=== PATIENT | male | born 1995 | race Hispanic/Latino ===

== ENCOUNTER 2018-12-10 22:03 | Observation (INO) | payer SELFPAY ==
[2018-12-10 22:25] VITALS: BMI 20.8
[2018-12-11] VITALS (13 sets, daily range): BP systolic 88–116; BP diastolic 44–58; PULSE 61–85; RESP 9–20; TEMP 36.6–37.2; O2SAT 98–100
--- NOTE | 2018-12-11 | PATH_ITS ---
[facility] Accession Number: [id number] . 01 Material submitted: . APPENDIX . 02 Diagnosis: Appendix: Acute appendicitis. [facility]/12/15/2018 . 02 Electronically signed: . Louie Alfaro MD, Pathologist NPI- [id number] . 01 Gross description: . Received in formalin, labeled appendix, is an intact appendix (length-6.6 cm, diameter-0.9 cm) with dull davila-white serosa with attached mesoappendix (up to 1.0 cm in depth). The resection margin is received opened. The lumen contains clear colorless fluid. The wall is up to 0.5 cm thick. No nodules, masses or lesions are identified. The resection margin is inked black. Section code: (A1) resection margin en face and four additional serial sections; (A2) four field service representative serial sections; (A3) bivalved tip, entirely submitted. ([id number]) /MRV . 02 Pathologist provided ICD-10: K35.80 . 02 CPT . 462268 Performed at: 01 [facility] [address] [facility], [place], [place] [id number] MD Derek Jones MD Phone: [phone] Performed at: [facility] [address] [place], [place] [id number] MD Shruti Stover MD Phone: [phone]
[2018-12-11] MEDS: MORPHINE 2 MG/ML INJ IV ×2 (02:05→13:21)
[2018-12-11] MEDS: SODIUM CHLORIDE 0.9% 1,000 ML 125 ML IV ×2 (02:06→08:25)
--- NOTE | 2018-12-11 04:56 | PC.NURSE ---
pt arrived to floor at [address] vehicle from Thursday. Patient and father speak mostly Swedish. Father and friend in room. Interpreting phone services unavailable for admission, but friend (lives with patient and father) able to interpret. pt reporting 6/10 pain in lower, medial abdomen, 2mg IV Morphine administered at 0200, pt sleeping since then. NS infusing at 125ml/hr to right AC. NPO. IND/SBA. pt doesn't have any questions remaining.
--- NOTE | 2018-12-11 08:04 | PM.HP.1 ---
History of Present Illness Date Patient Seen: 12/11/18 Time Patient Seen: 08:07 Chief complaint: APPENDICITIS 23-year-old white male Narrative: 23-year-old male developed abdominal pain yesterday went to [facility] emergency [facility] was found to have acute appendicitis non complicated on a CT scan and was transferred here in the middle the night. He has received IV antibiotics and will have an open appendectomy this morning. Through an assembly machine offbearer the patient understands and agrees to the procedure. he has no other significant medical surgical history. Patient History Medical History Known health problems: none (Acute) No known problems (Acute) Social History household members: family Smoking Status: Never smoker alcohol intake: current Family & Social History Family history unavailable: Yes Social History: household members family Prior Living Arrangements Apartment/Condo Safety & Behavioral: Feels Safe in Current Yes Environment Been Physically Hurt or No Threatened By a Person Suicidal Ideation Description None Suicide Plan Description No Plan Tobacco & Substance use: Smoking Status Never smoker alcohol intake current alcohol intake frequency a few times a month Substance Use Type does not use Meds Home Medications Medication Instructions Recorded Confirmed Type No Known Home Medications 12/11/18 12/11/18 History Allergies Allergy/AdvReac Type Severity Reaction Status Date / Time No Known Allergies Allergy Verified 12/11/18 02:05 Review of Systems Review of Systems All systems reviewed & are unremarkable except as noted in HPI and below Exam Vital Signs (past 8 hours): - 12/11/18 02:00 12/11/18 05:12 Temperature 98.8 F 98.3 F Pulse Rate 71 81 Respiratory Rate 16 13 Blood Pressure 116/55 L 92/50 L Pulse Oximetry 100 100 Oxygen Flow Rate 0 Narrative Exam Narrative: On physical exam patient has temperature of 99? his pain is moderate since he has been here overnight lung box are clear with no rales or wheezes. Heart regular rhythm no murmur abdomen is tender in the right lower quadrant with some guarding and mild rebound tenderness. remaining physical is unremarkable. Objective ECG Impression: Acute uncomplicated appendicitis Assessment & Plan Assessment & Plan narrative: Patient has been made aware and fully understands that he will have an open appendectomy and he agrees
--- NOTE | 2018-12-11 08:10 | P.HP_ITS ---
History of Present Illness Date Patient Seen: 12/11/18 Time Patient Seen: 08:07 Chief complaint: APPENDICITIS 23-year-old white male Narrative: 23-year-old male developed abdominal pain yesterday went to the emergency clinic and [facility] was found to have acute appendicitis non complicated on a CT scan and was transferred here in the middle the night. He has received IV antibiotics and will have an open appendectomy this morning. Through an freelance interpreter/translator the patient understands and agrees to the procedure. he has no other significant medical surgical history. Patient History Medical History Known health problems: none (Acute) No known problems (Acute) Social History household members: family Smoking Status: Never smoker alcohol intake: current Family & Social History Family history unavailable: Yes Social History: household members family Prior Living Arrangements Apartment/Condo Safety & Behavioral: Feels Safe in Current Yes Environment Been Physically Hurt or No Threatened By a Person Suicidal Ideation Description None Suicide Plan Description No Plan Tobacco & Substance use: Smoking Status Never smoker alcohol intake current alcohol intake frequency a few times a month Substance Use Type does not use Meds Home Medications Medication Instructions Recorded Confirmed Type No Known Home Medications 12/11/18 12/11/18 History Allergies Allergy/AdvReac Type Severity Reaction Status Date / Time No Known Allergies Allergy Verified 12/11/18 02:05 Review of Systems Review of Systems All systems reviewed & are unremarkable except as noted in HPI and below Exam Vital Signs (past 8 hours): - 12/11/18 02:00 12/11/18 05:12 Temperature 98.8 F 98.3 F Pulse Rate 71 81 Respiratory Rate 16 13 Blood Pressure 116/55 L 92/50 L Pulse Oximetry 100 100 Oxygen Flow Rate 0 Narrative Exam Narrative: On physical exam patient has temperature of 99? his pain is moderate since he has been here overnight lung box are clear with no rales or wheezes. Heart regular rhythm no murmur abdomen is tender in the right lower quadrant with some guarding and mild rebound tenderness. remaining physical is unremarkable. Objective ECG Impression: Acute uncomplicated appendicitis Assessment & Plan Assessment & Plan narrative: Patient has been made aware and fully understands that he will have an open appendectomy and he agrees
[2018-12-11] MEDS: CEFTRIAXONE 2 GM/50 ML FROZ.PIGGY IV (08:25)
--- NOTE | 2018-12-11 11:03 | PC.NURSE ---
Addendum entered by Sally Moraes R.N. 12/11/18 15:19: Late entry: Back from surgery at 1255. VSS. Room air 99-100%. Dressing to RLQ abd dry/intact with a couple pea-sized spots sanguinous drainage. Tolerated clear liquids, diet advanced for dinner. Medicated with 2 tabs Percocet + Ibuprofen at 1454 for 5/10 abd pain. IVF per order, site in R AC WNL. Communicated with patient via advertising display rotator line and his family. Encouraged to make needs known. Call light in reach, bed alarm on for safety r/t recent post op. Original Note: Shift summary: Alert and oriented X3. NPO since admit. Denied needing any pain meds. Denied N/V. BT+, abd soft, tender LLQ. Voided 340 ml clear ailyn urine, SBA into bathroom. Taken off floor to surgery at 1055. Consent signed, witnessed and on chart.
--- NOTE | 2018-12-11 11:45 | SUR.OPER ---
Supine on padded OR bed, head on pillow, arms secured on padded arm boards at <90 degrees abduction, legs uncrossed, safety belt at thigh, tape over blanket over lower legs.
[2018-12-11] MEDS: BUPIVACAINE 0.5% W/ EPI (PF) VIAL 30 ML INJ (11:52)
[2018-12-11] MEDS: NEOMYCIN/POLYMYXIN/BACITRA UD OINT 1 EACH TOP (11:53)
[2018-12-11] MEDS: SODIUM CHLORIDE IRRIG SOLUTION 1,000 ML, BACITRACIN 50,000 UNIT IRR (11:53)
--- NOTE | 2018-12-11 12:06 | PM.OP.1 ---
Operative Date/Time/Diagnoses Date of procedure: 12/11/18 Time of procedure: 12:06 Pre-op diagnosis: Acute uncomplicated appendicitis Post-op diagnosis: same Procedure & Clinicians Procedure: Appendectomy Same procedure as scheduled: Yes Surgeon: Juan Francisco Boykin Click Yes if Unassisted: Yes Anesthesia Type: General Operative Notes Findings: Acute uncomplicated appendicitis was the intraoperative finding. The patient was properly identified during surgical pause under general endotracheal anesthesia prepped and draped in a sterile fashion with exposure of the right lower quadrant of the abdomen. a standard Kadeem-Dax incision was made over McBurney's point the oblique muscles split in the grid iron fashion exposing the peritoneum which was elevated and entered so as to avoid injury to the underlying structures. the cecum was rotated into the wound. the appendix was acutely inflamed coated with fibrin but not ruptured. The appendix was grasped with a Alexis clamp and dissected away from the surrounding peritoneum the mesoappendix cross clamped with right angle clamps. The base the appendix was divided over a TA 30? staple line. appendiceal vessels were ligated with 2 0 Vicryl. both staple line and ligatures were intact and there was no bleeding or leak from the base the appendix. The appendix thus removed was cultured. The pelvis irrigated with copious amount of saline containing bacitracin. Peritoneum closed with a running 2 0 Vicryl. oblique fascia closed with 1. Maxon. Subcu irrigated with bacitracin saline and the skin closed with belem. sterile dressings were applied procedures very well tolerated ... dictation on Wander.
--- NOTE | 2018-12-11 12:47 | SUR.PHASEI ---
REPORT CALLED TO JOB SHEPHERD. IV PATENT AND INFUSING, ABDOMEN IS SOFT AND NON DISTENDED, BAND AID IS DRY AND INTACT. VSS. PT STATING PAIN IS 3/10 BUT DENIES NEED FOR PAIN MEDICATION AT THIS TIME.
[2018-12-11] MEDS: DEXTROSE 5%-0.45% NS 1,000 ML 100 ML IV (13:10)
[2018-12-11] MEDS: OXYCODONE/ACETAMINOPHEN 5/325 TABLET 2 TAB PO (14:54)
[2018-12-11] MEDS: IBUPROFEN 600 MG TABLET PO (14:55)
--- NOTE | 2018-12-11 16:23 | CM.IDA ---
Discharge Planning/Care Management CM Discharge Assessment Start: 12/11/18 16:19 Freq: Status: Active Protocol: Document 12/11/18 16:19 AYLA (Rec: 12/11/18 16:23 AYLA [id number]) Discharge Planning Assessment Assigned Online Project Manager NELSON Parkinson DPOA/Assigned Designee Name Aunt Valdez Contact Information [phone] Advance Directives? No History Provided By Medical Record Prior Living Arrangements Apartment/Condo Household Members family Type of transporation used prior to Drives own vehicle admit Independent with ADL's Yes Is patient alert and oriented? Yes Comment Wolof speaking only Barriers to Discharge No Comment Pt is scheduled for an open appendectomy w/ Dr Jett, general surgeon, today. Payer: Self Pay. Pt off the floor today, although according to chart review, pt will likely return home w/family, to [place] upon medical clearance. No barriers, no SW needs indicated at this time. This LIFT DRIVER will remain available in case DC needs or concerns arise. NELSON Johnson Discharge Plan Home Transportation Arrangement Family, priority boarding pass Referrals Initiated None needed Review Status In Process
[2018-12-12] MEDS: DEXTROSE 5%-0.45% NS 1,000 ML 100 ML IV (00:13)
[2018-12-12 05:33] VITALS: BP 107/44; PULSE 64; RESP 20; TEMP 36.6; O2SAT 100
[2018-12-12] MEDS: OXYCODONE/ACETAMINOPHEN 5/325 TABLET 2 TAB PO (05:44)
[2018-12-12 06:11] VITALS: BP 107/47
--- NOTE | 2018-12-12 06:53 | PC.NURSE ---
Patient denies need to void. Claims small amount of pain, but he slept well all night, and meds given this am. Dressing is gauze and tegaderm to rightquadrant, bloody, but not saturated dressing.
--- NOTE | 2018-12-12 09:07 | PM.PN.1 ---
Subjective Date Patient Seen: 12/12/18 Time Patient Seen: 09:13 Interval history: Patient is 1 day post appendectomy and feels very minimal discomfort he is tolerating a regular solid diet with no nausea and vomiting. Exam Vital Signs (past 8 hours): - 12/12/18 05:33 12/12/18 06:11 Temperature 97.9 F Pulse Rate 64 Respiratory Rate 20 Blood Pressure 107/44 L 107/47 L Pulse Oximetry 100 Oxygen Delivery Method Nasal Cannula Oxygen Flow Rate 0 Narrative Exam Narrative: Patient is afebrile his abdomen is soft his dressing is dry and intact. Assessment & Plan Assessment & Plan narrative: Patient is recovering very nicely from open appendectomy. Will be discharged home today. No further antibiotic therapy is given. He will take [id number] Tylenol or ibuprofen for discomfort. He will be seen in 1 week for removal of his belem. he will avoid any heavy lifting for the next 2 weeks. I explained this with the assistance of a motor inspection mechanic. Patient understands fully and agrees and has no further questions. Patient is also invited to return here to our surgery Clinic for any further questions.
--- NOTE | 2018-12-12 09:12 | P.PN_ITS ---
Subjective Date Patient Seen: 12/12/18 Time Patient Seen: 09:13 Interval history: Patient is 1 day post appendectomy and feels very minimal discomfort he is tolerating a regular solid diet with no nausea and vomiting. Exam Vital Signs (past 8 hours): - 12/12/18 05:33 12/12/18 06:11 Temperature 97.9 F Pulse Rate 64 Respiratory Rate 20 Blood Pressure 107/44 L 107/47 L Pulse Oximetry 100 Oxygen Delivery Method Nasal Cannula Oxygen Flow Rate 0 Narrative Exam Narrative: Patient is afebrile his abdomen is soft his dressing is dry and intact. Assessment & Plan Assessment & Plan narrative: Patient is recovering very nicely from open appendectomy. Will be discharged home today. No further antibiotic therapy is given. He will take [id number] Tylenol or ibuprofen for discomfort. He will be seen in 1 week for removal of his belem. he will avoid any heavy lifting for the next 2 weeks. I explained this with the assistance of a manufacturing operator. Patient understands fully and agrees and has no further questions. Patient is also invited to return here to our surgery Clinic for any further questions.
--- NOTE | 2018-12-12 09:44 | PC.NURSE ---
Addendum entered by Kike Dewey R.N. 12/12/18 13:29: Pt discharged to family instructions given via language phone with nuclear plant technical advisor. Moving Worker states Pt understands instructions. Written instructions given in Azerbaijani. IV d/c'd intact. Pt wheeled to car by JOB Stokes. Original Note: Pt alert and oriented assisted by Virginia ACHARYA , understands plan for the morning. No overt c/o pain.Surgical site intact. Dr. Boykin in to see Pt. D/c orders placed.
[2018-12-12 10:13] VITALS: BP 109/60; PULSE 60; RESP 18; TEMP 36.2; O2SAT 100
== END 2018-12-12 12:15 | disposition home or self-care (01) ==
PROVIDERS: Admitting Provider Surgery; Visit Provider Surgery
PROC: (CPT 44950; principal; 2018-12-11 11:00)
DX: K35.80 Unspecified acute appendicitis (principal)
CPT/HCPCS: 44970; 44950; 87070; 87075; 87205; 99220; G0378; G0379; J0696; J1100; J1170; J1885; J2250; J2270; J2405; J2704; J3010